=== PATIENT | male | born 1980 | race Caucasian/White ===

== ENCOUNTER 2023-04-09 17:36 | Emergency (ER) | payer SELFPAY ==
[2023-04-09 17:41] VITALS: BP 125/90; PULSE 85; RESP 18; TEMP 36.8; O2SAT 95; BMI 26.1
--- NOTE | 2023-04-09 17:48 | XR_ITS ---
The [address] [address] Patient Name: HOLLAND VALDOVINOS MRN: [id number] date: 1980 Sex: M Assigned Patient Location: ED.MAIN Current Patient Location: ER Accession/Order Number: [id number] Exam Date: 04/09/2023 18:20 Report Date: 04/09/2023 19:20 At the request of: MORRIS GUZMAN Procedure: XR pelvis 1-2V EXAM: XR pelvis 1-2V HISTORY: pain right SI joint COMPARISON: None. TECHNIQUE: An AP view of the pelvis is performed. FINDINGS: There is no acute fracture. The bony structures are intact. There is a large calcification within the pelvis, measuring approximately 11.5 x 8.6 cm. This does not have a typical appearance for retained barium contrast, and no additional contrast is seen throughout the colon. Calcified mass is suspected. XR/XR pelvis 1-2V IMPRESSION: No acute fracture. Calcified lesion within the pelvis. It is noted that a CT scan of the pelvis has already been ordered. Electronically authenticated by: ASHLYN DASH Date: 04/09/2023 19:20
--- NOTE | 2023-04-09 17:48 | XR_ITS ---
The [address] [address] Patient Name: HOLLAND VALDOVINOS MRN: [id number] date: 1980 Sex: M Assigned Patient Location: ED.MAIN Current Patient Location: ER Accession/Order Number: [id number] Exam Date: 04/09/2023 18:20 Report Date: 04/09/2023 19:22 At the request of: MORRIS GUZMAN Procedure: XR lumbar spine min 4V EXAM: XR lumbar spine min 4V HISTORY: pain right lower back COMPARISON: None. TECHNIQUE: AP, lateral, and bilateral oblique views FINDINGS: Vertebral bodies and disc spaces are normal in height. Pedicles are intact. Facet articulations are normal in appearance. There are 2 rim calcified pelvic lesions, incompletely visualized. XR/XR lumbar spine min 4V IMPRESSION: Lumbar spine examination within normal limits. Rim calcified pelvic lesions. See also report for the pelvis study of this same date. Electronically authenticated by: Isabella CHI Date: 04/09/2023 19:22
--- NOTE | 2023-04-09 17:48 | XR_ITS ---
The [address] [address] Patient Name: HOLLAND VALDOVINOS MRN: [id number] date: 1980 Sex: M Assigned Patient Location: ED.MAIN Current Patient Location: ER Accession/Order Number: [id number] Exam Date: 04/09/2023 18:20 Report Date: 04/09/2023 19:20 At the request of: MORRIS GUZMAN Procedure: XR foot RT min 3V EXAM: XR foot RT min 3V HISTORY: pain 5th mT distal aspect COMPARISON: None. TECHNIQUE: 3 view study FINDINGS: Overall bony architecture is normal. There is narrowing at the first MP joint with early lateral osteophytosis. Other articulations are well-maintained. Soft tissues are unremarkable. XR/XR foot RT min 3V IMPRESSION: Early degenerative changes at the first MP joint. No evidence for acute fracture or dislocation. Electronically authenticated by: Isabella CHI Date: 04/09/2023 19:20
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
[2023-04-09] MEDS: IBUPROFEN 600 MG TABLET PO (18:00)
[2023-04-09] MEDS: ACETAMINOPHEN 500 MG TABLET 1000 MG PO (18:00)
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
== END 2023-04-09 21:15 | disposition home or self-care (01) ==
PROVIDERS: Emergency Provider Emergency Medicine
DX: M54.50 Low back pain, unspecified (principal); R19.00 Intra-abdominal and pelvic swelling, mass and lump, unspecified site; F17.210 Nicotine dependence, cigarettes, uncomplicated; V03.10XA Pedestrian on foot injured in collision with car, pick-up truck or van in traffic accident, initial encounter
CPT/HCPCS: 72110; 72170; 72192; 73630; 99284